=== PATIENT | male | born 1935 | race Caucasian/White ===

== ENCOUNTER 2016-09-04 12:51 | Inpatient (IN) | payer MEDICARE, OTHER ==
[~2016-09-04] VITALS: Ht 188 cm; Wt 74.8 kg
[~2016-09-04 12:51] MED LIST: CHILDRENS CHEWA81 MG PO; COLACE100 MG PO; HYDROCODON-ACE1 EAC6 PO; LEVAQUIN500 MG PO; MULTIVITAMINS1 EAC1 PO; OMEPRAZOLE40 MG PO; PRAVACHOL20 MG PO; PREDNISONE10 MG PO; PROTONIX40 MG PO; SPIRIVA18 MCG INH; SYMBICORT 16060 PUFF INH; SYNTHROID50 MCG PO
[2016-09-04 13:50] LABS: HEMATOCRIT 43.9 % (40-51); HEMOGLOBIN 14.2 g/dl (13.7-17.5); MEAN CORPUSCULAR HEMOGLOBIN 31.7 pg (27.0-33.0); MEAN CORPUSCULAR HGB CONC 32.3 g/dl (32.0-36.0); RED BLOOD COUNT 4.48 x10_6/ul (4.6-6.1); RED CELL DISTRIBUTION WIDTH 14.3 % (11.6-14.4); WHITE BLOOD COUNT 7.9 x10_3/ml (4.2-9.1)
[2016-09-04 13:51] LABS: GRAN # 5.1 10_X3_UL (1.8-5.4); GRAN % 63.7 % (34.0-67.9); LYMPH # 0.8 10_X3_UL (1.3-3.6); LYMPH % 25.9 % (21.8-53.1); MIXED % 10.4 % (1.7-9.3); PLATELET COUNT 207 x10_3/UL (163-337)
[2016-09-04 13:57] LABS: CALCIUM 9.2 mg/dL (8.7-10.7); CARBON DIOXIDE 32 mmol/L (21-32); CREATININE 0.7 mg/dL (0.6-1.3); GLUCOSE,RANDOM 99 mg/dL (70-99); POTASSIUM 4.4 mmol/L (3.5-5.1); SODIUM 139 mmol/L (136-145)
[2016-09-04 13:58] LABS: BLOOD UREA NITROGEN 7 mg/dL (7-18)
[2016-09-06 07:10] LABS: HEMATOCRIT 37.4 % (40-51); HEMOGLOBIN 12.2 g/dL (13.7-17.5); MEAN CORPUSCULAR HEMOGLOBIN 31.8 pg (27.0-33.0); MEAN CORPUSCULAR HGB CONC 32.6 g/dL (32.0-36.0); MEAN CORPUSCULAR VOLUME 97.4 fL (79-92); MEAN PLATELET VOLUME 9.7 fl (7.5-11.5); RED BLOOD COUNT 3.84 x10_6/uL (4.6-6.1); RED CELL DISTRIBUTION WIDTH 14.1 % (11.6-14.4); WHITE BLOOD COUNT 9.1 x10_3/uL (4.2-9.1)
[2016-09-06 07:39] LABS: ALBUMIN 3.6 gm/dL (3.4-5.0); ALKALINE PHOSPHATASE 52 U/L (50-136); ALT/SGPT 7 U/L (7.53-40.17); AST/SGOT 12 U/L (6.66-35.34); BLOOD UREA NITROGEN 15 mg/dL (7-18); CALCIUM 8.4 mg/dL (8.7-10.7); CARBON DIOXIDE 28 mmol/L (21-32); CREATININE 0.7 mg/dL (0.6-1.3); GLUCOSE,RANDOM 161 mg/dL (70-99); POTASSIUM 4.7 mmol/L (3.5-5.1); SODIUM 137 mmol/L (136-145); TOTAL PROTEIN 5.6 gm/dL (6.4-8.2)
[2016-09-07 06:42] LABS: BASO % 0.1 % (0.2-1.2); GRAN # 7.6 10_X3_uL (1.8-5.4); GRAN % 83.4 % (34.0-67.9); HEMATOCRIT 41.5 % (40-51); HEMOGLOBIN 13.7 g/dL (13.7-17.5); LYMPH % 10.7 % (21.8-53.1); MEAN CORPUSCULAR HEMOGLOBIN 32.1 pg (27.0-33.0); MEAN CORPUSCULAR VOLUME 97.2 fL (79-92); MEAN PLATELET VOLUME 9.6 fl (7.5-11.5); MONO # 0.5 10_X3_uL (0.3-0.8); MONO % 5.8 % (5.3-12.2); PLATELET COUNT 233 x10_3/uL (163-337); RED BLOOD COUNT 4.27 x10_6/uL (4.6-6.1); RED CELL DISTRIBUTION WIDTH 14.1 % (11.6-14.4); WHITE BLOOD COUNT 9.1 x10_3/uL (4.2-9.1)
[2016-09-07 06:53] LABS: ALBUMIN 3.9 gm/dL (3.4-5.0); ALKALINE PHOSPHATASE 58 U/L (50-136); ALT/SGPT 10 U/L (7.53-40.17); AST/SGOT 16 U/L (6.66-35.34); BILIRUBIN,TOTAL 0.39 mg/dL (0.0-1.0); BLOOD UREA NITROGEN 14 mg/dL (7-18); CALCIUM 8.8 mg/dL (8.7-10.7); CARBON DIOXIDE 27 mmol/L (21-32); CREATININE 0.6 mg/dL (0.6-1.3); GLUCOSE,RANDOM 133 mg/dL (70-99); POTASSIUM 4.4 mmol/L (3.5-5.1); SODIUM 138 mmol/L (136-145); TOTAL PROTEIN 6.2 gm/dL (6.4-8.2)
== END 2016-09-07 11:00 | disposition home or self-care (01) | DRG 192 ==
LOC: ER 12:51 → MS 14:19 → ER 14:19 → MS 14:19 → ER 09-06 10:35 → MS 09-06 10:35
PROVIDERS: General Practice; ADMIT Family Medicine
DX: J44.0 Chronic obstructive pulmonary disease with (acute) lower respiratory infection (principal); J20.9 Acute bronchitis, unspecified; J44.1 Chronic obstructive pulmonary disease with (acute) exacerbation; M85.9 Disorder of bone density and structure, unspecified; R06.00 Dyspnea, unspecified; Z83.3 Family history of diabetes mellitus; Z80.9 Family history of malignant neoplasm, unspecified; Z82.49 Family history of ischemic heart disease and other diseases of the circulatory system; N20.0 Calculus of kidney; R91.1 Solitary pulmonary nodule; Z88.5 Allergy status to narcotic agent; Z79.899 Other long term (current) drug therapy; Z79.82 Long term (current) use of aspirin
CPT/HCPCS: 36415; 71010; 71250; 80048; 80053; 83605; 83880; 85025; 86738; 87040; 87070; 87205; 87449; 93005; 94640; 94664; 96361; 96365; 96375; 99070; 99284; 99285-25; J2930; J7040